=== PATIENT | female | born 1995 | race Two or more races ===

== ENCOUNTER 2025-06-09 08:11 | Emergency (ER) | payer MEDICAID, SELFPAY ==
[2025-06-09 08:20] VITALS: BP 108/72; PULSE 81; RESP 18; TEMP 37.1; O2SAT 99
--- NOTE | 2025-06-09 08:26 | XR_ITS ---
Examination: Complete OB ultrasound, less than 14 weeks, transabdominal Date and time of exam: June 09, 2025, 0858 hrs. Indications: Onset vaginal bleeding today. Technique: Obstetrical ultrasound images less than 14 weeks performed via transabdominal imaging Findings: Uterus 8.0 cm endometrial stripe 0.9 cm, no uterine mass or intrauterine gestation Right ovary 3.2 cm arterial flow. Left ovary 1.3 cm arterial flow, suspicious for dilated left fallopian tube 8 mm Impression: No intrauterine gestation or uterine mass. Recommend one week follow-up pelvic sonography to confirm left hydrosalpinx
--- NOTE | 2025-06-09 08:26 | EDNOTE_ITS ---
ED OB Contraction Preg RMI/HPI General Chief complaint: Vaginal Bleeding Stated complaint: VAGINAL BLEEDING PREG 6WKS Time Seen by Provider: 06/09/25 08:17 Arrival date/time: 06/09/25 08:11 Limitations: no limitations RME / HPI RME / HPI Narrative: 29yo female here for vaginal bleeding. [id number], 04/26/25 lnmp. States she has had 5 kids before and does not understand why she is bleeding she has very easy pregnancies. Has not had first ultrasound to confirm intrauterine . Related Data Home Medications ?Medication ?Instructions ?Recorded ?Confirmed No Known Home Medications 10/25/1910/10 Allergies Allergy/AdvReac Type Severity Reaction Status Date / Time No Known Allergies Allergy Verified 06/09/25 08:13 Review of Systems Review of Systems Systems Reviewed: All systems reviewed, normal except as documented Constitutional Constitutional: Denies fever(s) Gastrointestinal Gastrointestinal: Reports as per HPI Genitourinary Genitourinary: Reports as per HPI ED Exam General Limitations: Present no limitations General appearance: Present alert and in no apparent distress Eye Eye exam: Present normal appearance, PERRL and EOMI Respiratory Respiratory exam: Present normal lung sounds bilaterally Cardiovascular Cardiovascular exam: Present regular rate, normal rhythm and normal heart sounds Abdominal Exam Abdominal exam: Present soft and normal bowel sounds External exam: Present other (Declined pelvic exam) Extremities Exam Extremities exam: Present normal inspection and full ROM Back Exam Back exam: Present normal inspection and full ROM Psychiatric Psychiatric exam: Present normal affect and normal mood Skin Skin exam: Present warm, dry, intact and normal color Course Quality Measures none Orders Category Date Time Status US OB <= 14 weeks fetus Stat Exams 06/09/25 08:26 Completed ABO/RH Type - Stat Lab 06/09/25 08:56 Completed Beta HCG,Quantitative Stat Lab 06/09/25 08:56 Completed CBC Stat Lab 06/09/25 08:56 Completed CMP [Comprehensive Metabolic Panel] Stat Lab 06/09/25 08:56 Completed UA [Urinalysis] Stat Lab 06/09/25 08:32 Completed Vital Signs Vital signs: Vital Signs Temperature 98.8 F 06/09/25 08:20 Pulse Rate 81 06/09/25 08:20 Respiratory Rate 18 06/09/25 08:20 Blood Pressure 108/72 06/09/25 08:20 Pulse Oximetry (%) 99 06/09/25 08:20 Oxygen Delivery Method Room Air 06/09/25 08:20 Vaginal Bleeding MDM Narrative MDM Narrative: After ED visit patient likely having a spontaneous . This was explained to patient as the quant's are only 52. Explained the doubling as expected within 2 days. Follow-up with PCP return to ER if starts to bleed 1 pad per hour patient verbalized understanding of such. Patient data External records reviewed:: [facility] previous records Clinical information provided by:: patient Social determinants that could affect healthcare access:: other (specify) (No PCP appointment on weekends) Patient has the following chronic illnesses:: None How is presenting disease/condition affected by chronic disease/condition?: no chronic disease Evaluation data The following diagnostics were reviewed and interpreted by me:: lab results and radiology exam(s) Lab and/or radiology exams considered but not ordered:: All testing considered was ordered Interpretation Summary: hCG quant 52, CBC CMP all within normal limits, patient is AB+ does not require RhoGAM today. Ultrasound does not show IUP. Medications / Prescriptions Medications or Prescriptions considered but not ordered:: No medications indicated at this time Medication administrations:: none Consultations Consultation(s) initiated? (list below): No Diagnosis Vaginal Bleeding Differential Diagnosis: missed , threatened , dysfunctional uterine bleeding, menometrorrhagia, ectopic without intrauterine and other Most likely diagnosis given after review of the tests above:: threatneda Admission Indicated Admission indicated?: not indicated Admission Request Was there a request for admission?: No Disposition Plan Disposition Plan: Discharge Discharge Attestation Discharge Attestation: The patient and all family members were given an opportunity to ask questions and understood the discharge instructions. Discharge instructions specifically effects, indications for sooner follow up or return to the emergency department, and the expected course of current diagnosis. Patient condition: Stable Discharge Plan Plan Patient Disposition: HOME (Self Care) Discharge Disposition comment: f/u with pcp in 2-3days Prescriptions/Referrals Prescriptions/Med Rec: No Action No Known Home Medications Referrals: Ned Mojica MD [Primary Care Provider] - In 1 week Problem List Clinical Impression: Threatened Patient/Caregiver Discharge Instructions Education Materials: ED Possible Miscarriage ... Print Language: Vietnamese Stand Alone Forms: Shannon Award Info., Patient Portal Info Letter PA/KERA Supervising Physician PA/KERA Supervising Physician: Dr. Carreon
[2025-06-09 08:58] LABS: Collection Type, Urine Clean Catch
[2025-06-09 09:03] LABS: Basophils # (Auto) 0.0 Thou/mm3 (0.0-0.2); Basophils % (Auto) 1 % (0-2.5); Eosinophils # (Auto) 0.2 Thou/mm3 (0.0-0.5); Eosinophils % (Auto) 5 % (0-10); Hematocrit 39.5 % (36.0-46.0); Hemoglobin 13.4 g/dL (12.0-16.0); Immature Granulocytes Auto 0.00 Thou/mm3 (0.00-0.00); Lymphocytes # (Auto) 1.5 Thou/mm3 (1.0-4.8); Lymphocytes % (Auto) 36 % (10-50); Mean Corpuscular HGB Conc 33.9 g/dl (31.0-37.0); Mean Corpuscular Hemoglobin 28.4 pg (25.0-35.0); Mean Corpuscular Volume 84 fL (80-100); Monocytes # (Auto) 0.3 Thou/mm3 (0.0-0.8); Monocytes % (Auto) 7 % (0-12); Neutrophils # (Auto) 2.1 Thou/mm3 (1.8-7.7); Neutrophils % (Auto) 52 % (37-80); Nucleated Red Blood Cell # 0.00 Thou/mm3 (0.00-0.00); Nucleated Red Blood Cell % 0 /100 WBC (0); Platelet Count 220 Thou/mm3 (140-440); RDW Standard Deviation 37.6 fL (36.4-46.3); Red Blood Count 4.72 Miln/mm3 (4.00-5.20); White Blood Count 4.1 Thou/mm3 (3.6-11.0)
[2025-06-09 09:29] LABS: Bilirubin,Urine Negative (Negative); Blood,Urine 3+ (Negative); Clarity,Urine Turbid (Clear/Hazy); Color,Urine Yellow (Lt Yel-Yel); Glucose, Urine Negative (Negative); Ketones,Urine Negative (Negative); Leukocyte Esterase,Urine Negative (Negative); Nitrite,Urine Negative (Negative); PH,Urine 6.0 (5.0-7.0); Protein,Urine Trace (Neg - Trace); RBC,Urine 65 /hpf (0-3); Specific Gravity,Urine 1.029 (1.001-1.035); Squamous Epithelial Cell,Urine 7 /hpf (0-5); Urobilinogen,Urine Negative mg/dL (0.0-1.0); WBC,Urine 1 /hpf (0-5)
[2025-06-09 09:48] LABS: Alanine Aminotransferase 10 U/L (10-49); Albumin, Serum 4.4 gm/dL (3.5-5.0); Albumin/Globulin Ratio 1.9 (1.2-2.2); Alkaline Phosphatase 110 U/L (46-116); Anion Gap 10 (7-16); Aspartate Amino Transferase 17 U/L (0-34); BUN/Creatinine Ratio 7 Ratio (12-20); Beta HCG,Quantitative 52 mIU/mL (<5.0); Bilirubin,Total 0.8 mg/dL (0.3-1.2); Blood Urea Nitrogen 5 mg/dL (9-23); Calcium 9.5 mg/dL (8.3-10.6); Calcium (Corrected) 9.5 mg/dL (8.5-10.1); Carbon Dioxide 21.8 mMol/L (20.0-31.0); Chloride 109 mMol/L (98-107); Creatinine (Component) 0.7 mg/dL (0.6-1.3); Estimated Creatinine Clearance 96.3 mL/min (>60); Globulin 2.3 gm/dL (2.3-3.5); Glucose 88 mg/dL (74-106); Osmolality,Calculated 277 (275-295); Potassium 3.8 mMol/L (3.4-5.1); Sodium 141 mMol/L (136-145); Total Protein 6.7 gm/dL (5.7-8.2); eGFR > 60 See Note
== END 2025-06-09 11:20 | disposition home or self-care (01) ==
PROVIDERS: Emergency Provider Physician Assistant; PCP Family Medicine
DX: O20.0 Threatened abortion (principal); Z3A.01 Less than 8 weeks gestation of pregnancy
CPT/HCPCS: 36415; 76801; 80053; 81001; 84702; 85025; 86900; 86901; 99284